=== PATIENT | male | born 1970 | race African-American/Black ===

== ENCOUNTER 2017-02-27 10:30 | Inpatient (IN) | payer OTHER ==
--- NOTE | ~2017-02-27 | DS ---
Discharge Summary [facility] [address] [place]. [address] NAME: JAKI SILVA : 66 STATUS : DIS IN PAT#: [id number] AGE: 47 ADM/REG DATE : 02/27/17 MR#: [id number] REPORT SERV DATE: 03/04/17 DICTATED BY: LAZ HAMPTON DATE: 03/03/17 REPORT STATUS : Draft TRANSCRIBED BY: MODL DATE: 03/03/17 ADMISSION DATE: 02/27/2017 DISCHARGE DATE: 03/02/2017 REASON FOR ADMISSION: This patient was transferred from [facility] after being hospitalized there for acute hypoxemic respiratory failure, nonischemic dilated cardiomyopathy with acute decompensation CHF, atrial fibrillation with RVR, and a left bundle branch block and acute worsening of chronic kidney disease. The patient was transferred to [facility] for upgrade of his AICD to a biventricular AICD due to his worsening cardiac disease. Here he received transesophageal echocardiogram which would show a severely decreased left ventricular systolic function with a visually estimated EF of 10%. Moderate mitral regurgitation and mild tricuspid regurgitation. DISCHARGE DIAGNOSES: 1. Acute hypoxemic respiratory failure, resolved. 2. Nonischemic cardiomyopathy with acute on chronic congestive heart failure with an ejection fraction of 10%. 3. Acute kidney injury on CKD 3 with cardiorenal syndrome. Creatinine is 1.72. 4. Obstructive sleep apnea, on CPAP at home. 5. Asthma. HOSPITAL COURSE: The patient had a biventricular AICD placed on 03/01/2017, tolerated the procedure well and was cleared by Cardiology on the 03/02/2017 for discharge to home. Also cleared by Renal. He is to follow up with Dr. Slater and Renal after discharge. DISCHARGE CONDITION: Stable. DISCHARGE MEDICATIONS: 1. Digoxin 0.125 mg p.o. daily. 2. Aspirin 81 mg p.o. daily. 3. Albuterol two puffs q.4 hours p.r.n. 4. Guaifenesin and codeine p.r.n. 5. Aldactone 25 mg p.o. daily. 6. Eliquis 5 mg p.o. b.i.d. 7. Amiodarone 200 mg p.o. daily. 8. Tessalon Perles p.r.n. 9. Furosemide 80 mg p.o. b.i.d. 10.Coreg 3.125 mg p.o. b.i.d. 11.BiDil .50 half tab three times daily. 12.Ultram p.r.n. DISCHARGE PLAN: The patient is discharged to home. Follow up with Dr. Slater on 03/09/2017 and follow up with Renal in three to four weeks. Follow up with primary care, Dr. Kelsey, in one to two weeks. Discharge Summary [address] [address] NAME: JAKI SILVA : 66 STATUS : DIS IN PAT#: [id number] AGE: 47 ADM/REG DATE : 02/27/17 MR#: [id number] REPORT SERV DATE: 03/04/17 DICTATED BY: LAZ HAMPTON DATE: 03/03/17 REPORT STATUS : Draft TRANSCRIBED BY: EMANI DATE: 03/03/17 TDR/EMANI Laz a[place]mpton APN / [id number] CC: Alvin Wesley M.D. Van Stephen Monroe Jr., M.D. Donald Franklin Jr, M.D.
--- NOTE | ~2017-02-27 | TEE ---
Transesophageal Echocardiogram [address] [id number] [place]. [address] NAME: JAKI SILVA : 66 STATUS : REG REF PAT#: [id number] AGE: 47 ADM/REG DATE : 02/27/17 MR#: [id number] REPORT SERV DATE: 02/27/17 DICTATED BY: DATE: REPORT STATUS : Draft TRANSCRIBED BY: MODL DATE: 02/27/17 CHIEF COMPLAINT/REASON FOR STUDY: Atrial fibrillation. Written informed consent obtained. Please see chart for documentation. PROCEDURE: With the assistance of my Anesthesia colleagues, Mr. Silva was sedated for the procedure. The transesophageal probe was placed with one attempt without complication. 1. The aortic valve appeared trileaflet and opened adequately. There was no significant aortic valvular regurgitation visualized. 2. The left ventricular systolic function was severely depressed in a global manner. The left ventricle was dilated. Visually estimated ejection fraction was 10%. There was no visualization of left ventricular thrombus present. There was spontaneous echo contrast within the left ventricle consistent with low flow conditions. 3. The mitral and tricuspid valve leaflets appeared to open normally. There was moderate mitral regurgitation via color flow and Doppler imaging. The PISA radius measured 0.8 cm. There was no evidence of pulmonary vein flow reversal. 4. Left atrium: The Doppler velocities within the left atrial appendage measured 20-30 cm/second. There was mild color flow evidence of tricuspid valvular regurgitation. 5. The right ventricle appeared dilated with mildly decreased systolic function. 6. The right atrium appeared dilated pacing leads were visualized within the right atrium. 7. There was no evidence of pericardial effusion. IMPRESSION: 1. Severely decreased left ventricular systolic function with a visually estimated ejection fraction 10%. 2. Biventricular dilatation noted. 3. Moderate mitral regurgitation. 4. Mild tricuspid regurgitation. 5. No evidence of left atrial or left atrial appendage thrombus. [facility] Fernanda Johnston M.D. / [id number] CC: Alvin Grossman M.D.
[~2017-02-27 10:30] MED LIST: ACET500CAP PO; ASAB PO; CHERATUSSIN; CORDARONE PO; COREG25 PO; COREG6 PO; COREGCR10 PO; DELTADOSE PO; DEMA20 PO; DIGITEK0.125 MG PO; DIGOXIN PO; DSS PO; ELIQUIS 5 MG TAB5 MG PO; HALF81 PO; KDUR10 PO; KLOR-CON M2020 MEQ; KLOR-CON M2020 MEQ PO; L20 PO; L40 PO; L80 PO; LAN125 PO; LISINOPRIL40 MG PO; MUCINEX LIQUID PO; OMNICEF300 PO; PEP20 PO; PRIN2.5 PO; PRIN5 PO; SACU1TAB PO; SPIRO25 PO; STERAPRED DS10 MG; TESSALON200 MG PO; VENTOLIN HFA INH; VIT E PO; ZESTRIL20 MG PO
[2017-02-28 05:14] LABS: HEMATOCRIT 44.4 % (40.0-51.0); HEMOGLOBIN 15.8 g/dL (13.6-17.8); MEAN CORPUSCULAR HEMOGLOB 32.4 pg (26.0-34.0); PLATELET COUNT 194 10/3/uL (150-400); RBC DISTRIBUTION WIDTH 13.2 % (12.0-16.0); RED CELL COUNT 4.88 10/6/uL (4.7-6.1); WHITE BLOOD CELLS 12.8 10/3/uL (4.5-10.5)
[2017-02-28 05:17] LABS: MANUAL DIFF YES %; MEAN CORPUS HGB CONC 35.6 g/dL (32.0-36.0)
[2017-02-28 05:34] LABS: BUN (BLOOD UREA NITROGEN) 34 MG/DL (6-23); CALCIUM, SERUM 8.9 MG/DL (8.5-10.4); CHLORIDE, SERUM 85 MMOL/L (96-112); CO2 (CARBON DIOXIDE) 34 MMOL/L (24-34); CREATININE 1.94 MG/DL (0.70-1.30); GFR AFRICAN AMERICAN 46 ML/MIN (>=60); GFR NON AFRICAN AMERICAN 39 ML/MIN (>=60); GLUCOSE, SERUM 118 MG/DL (60-99); POTASSIUM, SERUM 3.8 MMOL/L (3.5-5.3); SODIUM, SERUM 130 MMOL/L (135-148)
[2017-02-28 06:33] LABS: EOSINOPHILS 1 %; EOSINOPHILS ABSOLUTE (CALC) 0.13 10/3/uL (0.0-0.53); IMMATURE GRANS ABSOLUTE (CALC) 0.13 10/3/uL (0.0-0.11); LYMPHOCYTES 11 %; LYMPHOCYTES ABSOLUTE (CALC) 1.41 10/3/uL (0.67-4.30); METAMYELOCYTES 1 %; MONOCYTES 15 %; MONOCYTES ABSOLUTE (CALC) 1.92 10/3/uL (0.21-1.20); NEUTROPHILS ABSOLUTE (CALC) 9.22 10/3/uL (2.02-8.40); SEGMENTED NEUTROPHIL (0) 72 %; TOTAL NUCLEATED CELLS 100
[2017-02-28 06:34] LABS: PLATELET ESTIMATE ADQ (ADEQUATE); TOXIC GRANULATION 1+
[2017-02-28 06:36] LABS: RBC MORPHOLOGY NORM (NORMAL); REACTIVE LYMPHS OCC (0-2%) (0-5%)
[2017-03-01 06:58] LABS: BASOPHILS 0.3 %; BASOPHILS ABSOLUTE 0.03 10/3/uL (0.0-0.16); EOSINOPHILS 2.3 %; EOSINOPHILS ABSOLUTE 0.25 10/3/uL (0.0-0.53); HEMATOCRIT 43.5 % (40.0-51.0); HEMOGLOBIN 15.7 g/dL (13.6-17.8); IMMATURE GRANULOCYTES 0.7 %; IMMATURE GRANULOCYTES ABSOLUTE 0.08 10/3/uL (0.0-0.11); LYMPHOCYTES 20.1 %; LYMPHOCYTES ABSOLUTE 2.21 10/3/uL (0.67-4.30); MANUAL DIFF NO %; MEAN CORPUS HGB CONC 36.1 g/dL (32.0-36.0); MEAN CORPUSCULAR HEMOGLOB 32.6 pg (26.0-34.0); MEAN CORPUSCULAR VOLUME 90.2 fL (80-100); MEAN PLATELET VOLUME 10.8 fL (9.2-13.0); MONOCYTES 18.4 %; MONOCYTES ABSOLUTE 2.02 10/3/uL (0.21-1.20); NEUTROPHILS 58.2 %; NEUTROPHILS ABSOLUTE 6.39 10/3/uL (2.02-8.40); PLATELET COUNT 185 10/3/uL (150-400); RBC DISTRIBUTION WIDTH 13.5 % (12.0-16.0); RED CELL COUNT 4.82 10/6/uL (4.7-6.1)
[2017-03-01 07:09] LABS: BUN (BLOOD UREA NITROGEN) 32 MG/DL (6-23); CALCIUM, SERUM 8.9 MG/DL (8.5-10.4); CHLORIDE, SERUM 90 MMOL/L (96-112); CO2 (CARBON DIOXIDE) 36 MMOL/L (24-34); CREATININE 1.64 MG/DL (0.70-1.30); GFR AFRICAN AMERICAN 56 ML/MIN (>=60); GFR NON AFRICAN AMERICAN 48 ML/MIN (>=60); GLUCOSE, SERUM 115 MG/DL (60-99); POTASSIUM, SERUM 3.4 MMOL/L (3.5-5.3); SODIUM, SERUM 131 MMOL/L (135-148)
[2017-03-02 06:53] LABS: BASOPHILS 0.5 %; BASOPHILS ABSOLUTE 0.05 10/3/uL (0.0-0.16); EOSINOPHILS 3.5 %; EOSINOPHILS ABSOLUTE 0.34 10/3/uL (0.0-0.53); HEMATOCRIT 45.7 % (40.0-51.0); HEMOGLOBIN 15.7 g/dL (13.6-17.8); LYMPHOCYTES 24.9 %; LYMPHOCYTES ABSOLUTE 2.43 10/3/uL (0.67-4.30); MANUAL DIFF NO %; MEAN CORPUS HGB CONC 34.4 g/dL (32.0-36.0); MEAN CORPUSCULAR HEMOGLOB 32.2 pg (26.0-34.0); MEAN CORPUSCULAR VOLUME 93.6 fL (80-100); MEAN PLATELET VOLUME 10.9 fL (9.2-13.0); MONOCYTES 16.6 %; MONOCYTES ABSOLUTE 1.62 10/3/uL (0.21-1.20); NEUTROPHILS 53.5 %; NEUTROPHILS ABSOLUTE 5.22 10/3/uL (2.02-8.40); PLATELET COUNT 198 10/3/uL (150-400); RBC DISTRIBUTION WIDTH 13.5 % (12.0-16.0); RED CELL COUNT 4.88 10/6/uL (4.7-6.1); WHITE BLOOD CELLS 9.8 10/3/uL (4.5-10.5)
[2017-03-02 07:13] LABS: BUN (BLOOD UREA NITROGEN) 35 MG/DL (6-23); CALCIUM, SERUM 9.1 MG/DL (8.5-10.4); CHLORIDE, SERUM 91 MMOL/L (96-112); CREATININE 1.72 MG/DL (0.70-1.30); GFR AFRICAN AMERICAN 53 ML/MIN (>=60); GFR NON AFRICAN AMERICAN 46 ML/MIN (>=60); GLUCOSE, SERUM 117 MG/DL (60-99); POTASSIUM, SERUM 3.9 MMOL/L (3.5-5.3); SODIUM, SERUM 134 MMOL/L (135-148)
[2017-03-02 07:14] LABS: CO2 (CARBON DIOXIDE) 31 MMOL/L (24-34)
[2017-03-02] MEDS ORDERED: L80 PO (14:35)
[2017-03-02] MEDS ORDERED: COREG3 PO (14:38)
[2017-03-02] MEDS ORDERED: ULTRAM50 PO (15:09)
[2017-03-02] MEDS ORDERED: BIDIL20/37 PO (15:09)
== END 2017-03-02 17:26 | disposition home or self-care (01) | DRG 226 ==
LOC: SSU1 10:30 → 7NO 02-28 17:52
PROVIDERS: Internal Medicine Cardiovascular Disease; Nurse Practitioner
DX: I13.0 Hypertensive heart and chronic kidney disease with heart failure and stage 1 through stage 4 chronic kidney disease, or unspecified chronic kidney disease (principal); I50.23 Acute on chronic systolic (congestive) heart failure; J96.01 Acute respiratory failure with hypoxia; J96.02 Acute respiratory failure with hypercapnia; N17.9 Acute kidney failure, unspecified; I42.8 Other cardiomyopathies; N18.3 Chronic kidney disease, stage 3 (moderate); Z23 Encounter for immunization; I44.7 Left bundle-branch block, unspecified; G47.33 Obstructive sleep apnea (adult) (pediatric); Z79.01 Long term (current) use of anticoagulants
CPT/HCPCS: 31500; 31720; 33225; 33249; 36569; 36600; 71010; 71020; 74000; 80048; 80053; 80069; 80162; 82550; 82553; 82805; 82962; 83036; 83735; 83880; 84100; 84443; 84484; 85025; 85379; 85610; 85730; 87040; 87641; 90686; 93005; 93312; 93320; 93325; 94002; 94003; 94640; 94660; 94770; 96365; 96375; 96376; 99291; A9270-GY; C1751; C1769; C1882; C1887; C1892; C1900; G0008; J0330; J0690; J1160; J1742; J2250; J2260; J2370; J2930; J3010; Q9967